=== PATIENT | female | born 1970 | race African-American/Black ===

== ENCOUNTER 2018-01-05 08:41 | Outpatient (CLI) | payer BC ==
--- NOTE | 2018-01-05 12:31 | RAD ---
UPPER GI: History: Prior gastric sleeve procedure. Epigastric pain. FINDINGS: The esophagus appears unremarkable. 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 Contrast flows into a gastric pouch where there is pooling with air fluid level. Contrast then begins to empty into the sleeve portion of the stomach w hich is shown to have a relatively large lumen. Contrast then flows into the antrum and pylorus. Cont rast fills the duodenum and jejunum and the duodenal and jejunal fold patterns appear normal. IMPRESSION: 1. Patient is post gastric sleeve by history. Contrast pools in the gastric pouch and there is reflux from this pouch when patient is placed succumbent. Contrast then flows through the sleeve portion of the stomach which exhibits a relatively large lumen. POS: [facility]
== END 2018-01-05 08:42 | disposition home or self-care (01) ==
LOC: RAD 08:41
PROVIDERS: ATTEND Specialist
DX: R10.13 Epigastric pain (principal); Z98.84 Bariatric surgery status
CPT/HCPCS: 36415; 74241; 80053; 80061; 82306; 82607; 82728; 82746; 83036; 83540; 83970; 84425; 85025